=== PATIENT | female | born 1945 | race Caucasian/White ===

== ENCOUNTER 2017-05-08 03:34 | Emergency (ER) | payer OTHER ==
[~2017-05-08] VITALS: Ht 167.6 cm; Wt 50.3 kg
[~2017-05-08 03:34] MED LIST: ATORVASTATIN CA20 MG PO; LANSOPRAZOLE30 MG PO; LO-DOSE ASPIRIN81 M1 PO; PROAIR HFA8.5 GM IH; REQUIP2 MG PO; SPIRIVA1 INHALATI IH
[2017-05-08 04:15] LABS: HEMATOCRIT 33.1 % (36.0-46.0); MCH 32.8 PG (29.0-34.0); MCHC 31.7 G/DL (30.0-36.0); MCV 103.4 FL (83-99); MEAN PLAT.VOLUME 10.3 uM^3 (9.5-12.4); PLATELET COUNT 181 K/uL (156-360); RBC DIS.WIDTH-CV 13.1 % (11.8-14.6); RBC DIS.WIDTH-SD 50.3 % (39-53); WHITE BLOOD COUNT 8.4 K/uL (4.1-10.2)
[2017-05-08 04:27] LABS: CHLORIDE 108 mEq/L (99-109); SODIUM 141 mEq/L (136-147)
[2017-05-08 04:29] LABS: GLUCOSE 119 mg/dL (70-99)
[2017-05-08 04:30] LABS: ANION GAP 8 MEQ/L (2-14)
[2017-05-08 04:31] LABS: TOTAL BILIRUBIN 0.4 mg/dL (0.0-1.0)
[2017-05-08 04:32] LABS: ALKALINE PHOSPHATASE 54 IU/L (3-129)
[2017-05-08 04:33] LABS: GFR ESTIMATE (CALCULATED) 52 mL/min/
[2017-05-08 04:34] LABS: UREA NITROGEN (BUN) 23 mg/dL (9-23)
[2017-05-08 04:35] LABS: TROP-I INTERPRETATION NEGATIVE; TROPONIN-I 0.01 ng/mL (0.0-0.30)
[2017-05-08 06:15] VITALS: BP 109/53
== END 2017-05-08 06:15 | disposition home or self-care (01) ==
LOC: EME 03:34
PROVIDERS: Physician Assistant
DX: K92.2 Gastrointestinal hemorrhage, unspecified (principal); Z90.49 Acquired absence of other specified parts of digestive tract; J44.9 Chronic obstructive pulmonary disease, unspecified; F17.200 Nicotine dependence, unspecified, uncomplicated
CPT/HCPCS: 74177; 80053; 84484; 85027; 86900; 86901; 93005; 99281; 99284; J7040

== ENCOUNTER → 2017-05-16 | Outpatient (CLI) | payer OTHER ==
[~2017-05-16] VITALS: Ht 162.6 cm; Wt 49.9 kg
[~2017-05-16] MED LIST changes: +REQUIP3 MG PO
== END | disposition home or self-care (01) ==
LOC: AMB 11:00
PROC: 0DBP8ZX Excision of Rectum, Via Natural or Artificial Opening Endoscopic, Diagnostic (ICD-10-PCS; principal; 2017-05-16)
DX: K62.1 Rectal polyp (principal); K57.30 Diverticulosis of large intestine without perforation or abscess without bleeding; K64.8 Other hemorrhoids; K92.1 Melena; Z79.82 Long term (current) use of aspirin; M81.0 Age-related osteoporosis without current pathological fracture; Z82.49 Family history of ischemic heart disease and other diseases of the circulatory system; Z80.3 Family history of malignant neoplasm of breast; Z84.1 Family history of disorders of kidney and ureter; Z80.6 Family history of leukemia
CPT/HCPCS: 88305